=== PATIENT | female | born 1970 | race Caucasian/White ===

== ENCOUNTER 2017-10-29 12:45 | Emergency (ER) | payer SELFPAY ==
[~2017-10-29] VITALS: Ht 162.6 cm; Wt 75.5 kg
[2017-10-29] MEDS ORDERED: DILAUDID2 MG PO (15:02)
[2017-10-29] MEDS ORDERED: FLEXERIL PO (15:02)
[2017-10-29] MEDS ORDERED: ONDANSETRON4 MG PO (16:09)
[2017-10-29 16:38] VITALS: BP 113/64
== END 2017-10-29 16:38 | disposition home or self-care (01) | DRG 552 ==
LOC: ED 12:45
DX: S32.019A Unspecified fracture of first lumbar vertebra, initial encounter for closed fracture (principal); W01.0XXA Fall on same level from slipping, tripping and stumbling without subsequent striking against object, initial encounter; Y93.89 Activity, other specified; Y92.009 Unspecified place in unspecified non-institutional (private) residence as the place of occurrence of the external cause